=== PATIENT | male | born 1985 | race Caucasian/White ===

== ENCOUNTER 2017-11-13 21:22 | Emergency (ER) | payer MEDICAID ==
[2017-11-14] MEDS: ALBUTEROL 0.083% (NEB) 2.5 MG/3 ML AMP NEB (01:50)
[2017-11-14] MEDS: IPRATROPIUM (NEB) 0.5 MG/2.5 ML AMP NEB (01:50)
[2017-11-14] MEDS: predniSONE 20 MG TAB PO (02:03)
== END 2017-11-14 02:40 | disposition home or self-care (01) ==
LOC: FTE 21:22
DX: J45.40 Moderate persistent asthma, uncomplicated (principal)
CPT/HCPCS: 94664; 99284-25